=== PATIENT | female | born 1995 ===

== ENCOUNTER 2018-03-25 22:02 | Emergency (ER) | payer OTHER ==
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
[2018-03-25] MEDS ORDERED: cefTRIAXone (Rocephin) 250 mg Inj IM STA (23:07)
[2018-03-26 00:27] VITALS: BP 116/76; PULSE 85; RESP 20; TEMP 98
[2018-03-26 00:35] LABS: SQUAMOUS EPITHIAL 2 /hpf (0-5); URINE BACTERIA RARE (<OCC); URINE BILIRUBIN NEGATIVE (NEGATIVE); URINE CLARITY Clear (Clear); URINE COLOR Yellow (YELLOW); URINE GLUCOSE (UA) NORMAL (Normal); URINE LEUKOCYTE ESTERASE NEG Leu/uL (Negative); URINE PROTEIN NEGATIVE (NEGATIVE); URINE UROBILINOGEN NORMAL mg/dL (0.2-1.0)
[2018-03-26 00:36] LABS: HCG,QUALITATIVE URINE NEGATIVE (NEGATIVE); URINE BLOOD NEGATIVE (NEGATIVE)
[2018-03-26 00:37] VITALS: O2SAT 98
== END 2018-03-26 00:46 | disposition home or self-care (01) ==
LOC: C.ER 22:02
DX: T76.21XA Adult sexual abuse, suspected, initial encounter (principal)
CPT/HCPCS: 81001; 84703; 86703; 96372; 99285; J0696